=== PATIENT | male | born 1980 | race Caucasian/White ===

== ENCOUNTER 2019-01-13 04:20 | Emergency (ER) | payer SELFPAY ==
[~2019-01-13] VITALS: Ht 180.3 cm; Wt 72.6 kg
[2019-01-13] MEDS ORDERED: NS IV 1000 ML 1,000 ML IV ONE (04:39)
[2019-01-13] MEDS ORDERED: KETOROLAC 30 MG/ML VIAL IVP STA (04:39)
[2019-01-13] MEDS ORDERED: ONDANSETRON 4 MG/2 ML (SDV) Z0FRAN IVP ONE (04:45)
[2019-01-13 04:49] LABS: BASOPHILS % (AUTO) 0 % (0-10); EOSINOPHILS # (AUTO) 0.2 10^3/uL (0.0-0.3); EOSINOPHILS % (AUTO) 3 % (0-10); HEMATOCRIT 42 % (40-54); HEMOGLOBIN 14.6 G/DL (13.3-17.7); LYMPHOCYTES # (AUTO) 2.5 X 10^3 (1.0-4.0); LYMPHOCYTES % (AUTO) 33 % (12-44); MEAN CORPUSCULAR HEMOGLOBIN 31 PG (25-34); MEAN CORPUSCULAR HGB CONC 35 G/DL (32-36); MEAN CORPUSCULAR VOLUME 89 FL (80-99); MEAN PLATELET VOLUME 10.3 FL (7.4-10.4); MONOCYTES # (AUTO) 0.6 X 10^3 (0.0-1.0); MONOCYTES % (AUTO) 8 % (0-12); NEUTROPHILS # (AUTO) 4.4 X 10^3 (1.8-7.8); NEUTROPHILS % (AUTO) 56 % (42-75); PLATELET COUNT 227 10^3/uL (130-400); WHITE BLOOD COUNT 7.7 10^3/uL (4.3-11.0)
--- NOTE | 2019-01-13 04:51 | ED Abdominal Pain ---
General Chief Complaint: Abdominal/GI Problems Stated Complaint: RT SIDE ABD PAIN Source of Information: Patient Exam Limitations: No Limitations (LEVAR GALARZA MEDICAL STUDENT) History of Present Illness Date Seen by Provider: Jan 13, 2019 Time Seen by Provider: 04:29 Initial Comments Pt presents to ED c/o severe RLQ pain x3hrs with associated vomiting and chills. He describes this pain as sharp and rates it as a 10/10. Pt reports that he has had diarrhea and nausea for 4 days. He reports that he walked from [place] to [place] yesterday and was vomiting throughout the walk. He did notice some blood in his vomit, noting that it was due to straining. Pt states his last alcoholic drink was saturday and denies use of illicit drugs. He notes that he can't bear to swallow pills and generally avoids doctors. Denies chest pain or SOB. Timing/Duration: 3-4 Days Severity/Quality: Severe, Sharp Location: RLQ Radiation: No Radiation Activities at Onset: None Modifying Factors: Improves With Other (keeping right hip flexed) Associated Symptoms: Nausea/Vomiting (LEVAR GALARZA MEDICAL STUDENT) Severity/Quality: Moderate Associated Symptoms: No Back Pain, No Chest Pain, No Fever/Chills (MAC ELISE MD) Allergies and Home Medications Allergies Coded Allergies: Penicillins (Verified Allergy, Unknown, 01/13/19) strawberry (Verified Allergy, Unknown, 01/13/19) Patient Home Medication List Home Medication List Reviewed: Yes (LEVAR GALARZA STUDENT) Home Medication List Reviewed: Yes (MAC ELISE MD) Review of Systems Review of Systems Constitutional: chills EENTM: No Symptoms Reported Respiratory: Denies Shortness of Air Cardiovascular: Denies Chest Pain Gastrointestinal: Abdominal Pain; Denies Blood Streaked Stools; Diarrhea, Nausea; Denies Poor Fluid Intake; Vomiting Genitourinary: No Symptoms Reported Musculoskeletal: no symptoms reported Skin: no symptoms reported Psychiatric/Neurological: No Symptoms Reported Endocrine: No Symptoms Reported Hematologic/Lymphatic: No Symptoms Reported (LEVAR GALARZA STUDENT) Constitutional: chills; No fever Respiratory: Denies Cough, Denies Shortness of Air Cardiovascular: Denies Edema Gastrointestinal: Abdominal Pain, Diarrhea, Nausea, Vomiting (MAC ELISE MD) All Other Systems Reviewed Negative Unless Noted: Yes (MAC ELISE MD) Past Nlbjiya-Xbwmdx-Hpbwvv Hx Past Med/Social Hx: Reviewed Nursing Past Med/Soc Hx (MAC ELISE MD) Patient Social History Alcohol Use: Occasionally Uses Recreational Drug Use: No Smoking Status: Current Everyday Smoker (1/2 ppd) Type Used: Cigarettes Recent Foreign Travel: No Contact w/Someone Who Travel: No Recent Hopitalizations: No (LEVAR GALARZA MEDICAL STUDENT) Seasonal Allergies Seasonal Allergies: No (LEVAR GALARZA STUDENT) Past Medical History Surgeries: No Respiratory: No Cardiac: No Neurological: No Genitourinary: No Gastrointestinal: No Musculoskeletal: No Endocrine: Yes (STATES HE WAS TOLD HE HAD LUPUS-NO F/U CARE/MEDICATIONS) Lupus Integumentary: No (LEVAR GALARZA STUDENT) Family Medical History Reviewed Nursing Family Hx (MAC ELISE MD) No Pertinent Family Hx (MAC ELISE MD) Physical Exam Vital Signs Vital Signs - First Documented 01/13/19 04:29 Temp 97.5 Pulse 87 Resp 18 B/P (MAP) 121/81 (94) O2 Delivery Room Air (MAC ELISE MD) Vital Signs Capillary Refill : (LEVAR GALARZA MEDICAL STUDENT) Height/Weight/BMI Height: '" Weight: lbs. oz. kg; BMI Method: General Appearance: moderate distress HEENT: pharynx normal, other (pinpoint pupils bilaterally) Neck: full range of motion, supple Respiratory: chest non-tender, lungs clear Cardiovascular: normal peripheral pulses, regular rate, rhythm, no murmur Peripheral Pulses: 2+ Radial Pulses (R), 2+ Radial Pulses (L) Gastrointestinal: normal bowel sounds, guarding, rebound (Rovsing's sign), tenderness (RLQ), other (+psoas sign) Extremities: non-tender, no pedal edema Back: normal inspection, no vertebral tenderness Skin: normal color, warm/dry (LEVAR GALARZA MEDICAL STUDENT) General Appearance: WD/WN, mild distress HEENT: pharynx normal, other (pinpoint pupils bilaterally) Neck: full range of motion, supple Respiratory: chest non-tender, lungs clear, normal breath sounds Cardiovascular: regular rate, rhythm, no murmur Gastrointestinal: soft, guarding, rebound (Rovsing's sign), tenderness (RLQ), other (+psoas sign) Extremities: normal range of motion, non-tender Back: normal inspection, no CVA tenderness, no vertebral tenderness Neurologic/Psychiatric: alert, oriented x 3 Skin: normal color, warm/dry (MAC ELISE MD) Progress/Results/Core Measures Results/Orders Lab Results Laboratory Tests Test 01/13/19 04:33 01/13/19 05:45 Range/Units White Blood Count 7.7 4.3-11.0 10^3/uL Red Blood Count 4.71 4.35-5.85 10^6/uL Hemoglobin 14.6 13.3-17.7 G/DL Hematocrit 42 40-54 % Mean Corpuscular Volume 89 80-99 FL Mean Corpuscular Hemoglobin 31 25-34 PG Mean Corpuscular Hemoglobin Concent 35 32-36 G/DL Red Cell Distribution Width 14.0 10.0-14.5 % Platelet Count 227 130-400 10^3/uL Mean Platelet Volume 10.3 7.4-10.4 FL Neutrophils (%) (Auto) 56 42-75 % Lymphocytes (%) (Auto) 33 12-44 % Monocytes (%) (Auto) 8 0-12 % Eosinophils (%) (Auto) 3 0-10 % Basophils (%) (Auto) 0 0-10 % Neutrophils # (Auto) 4.4 1.8-7.8 X 10^3 Lymphocytes # (Auto) 2.5 1.0-4.0 X 10^3 Monocytes # (Auto) 0.6 0.0-1.0 X 10^3 Eosinophils # (Auto) 0.2 0.0-0.3 10^3/uL Basophils # (Auto) 0.0 0.0-0.1 10^3/uL Sodium Level 140 135-145 MMOL/L Potassium Level 3.8 3.6-5.0 MMOL/L Chloride Level 105 98-107 MMOL/L Carbon Dioxide Level 23 21-32 MMOL/L Anion Gap 12 5-14 MMOL/L Blood Urea Nitrogen 16 7-18 MG/DL Creatinine 0.99 0.60-1.30 MG/DL Estimat Glomerular Filtration Rate > 60 BUN/Creatinine Ratio 16 Glucose Level 100 70-105 MG/DL Calcium Level 9.0 8.5-10.1 MG/DL Corrected Calcium 8.8 8.5-10.1 MG/DL Total Bilirubin 0.3 0.1-1.0 MG/DL Aspartate Amino Transf (AST/SGOT) 15 5-34 U/L Alanine Aminotransferase (ALT/SGPT) 19 0-55 U/L Alkaline Phosphatase 84 40-136 U/L Total Protein 7.1 6.4-8.2 GM/DL Albumin 4.2 3.2-4.5 GM/DL Urine Color YELLOW Urine Clarity CLEAR Urine pH 6 5-9 Urine Specific [place] 1.020 1.016-1.022 Urine Protein NEGATIVE NEGATIVE Urine Glucose (UA) NEGATIVE NEGATIVE Urine Ketones NEGATIVE NEGATIVE Urine Nitrite NEGATIVE NEGATIVE Urine Bilirubin NEGATIVE NEGATIVE Urine Urobilinogen 4 H NORMAL MG/DL Urine Leukocyte Esterase 1+ H NEGATIVE Urine RBC (Auto) NEGATIVE NEGATIVE Urine RBC NONE /HPF Urine WBC 0-2 /HPF Urine Squamous Epithelial Cells NONE /HPF Urine Crystals NONE /LPF Urine Bacteria TRACE /HPF Urine Casts NONE /LPF Urine Mucus NEGATIVE /LPF Urine Culture Indicated NO Urine Opiates Screen NEGATIVE NEGATIVE Urine Oxycodone Screen NEGATIVE NEGATIVE Urine Methadone Screen NEGATIVE NEGATIVE Urine Propoxyphene Screen NEGATIVE NEGATIVE Urine Barbiturates Screen NEGATIVE NEGATIVE Ur Tricyclic Antidepressants Screen NEGATIVE NEGATIVE Urine Phencyclidine Screen NEGATIVE NEGATIVE Urine Amphetamines Screen NEGATIVE NEGATIVE Urine Methamphetamines Screen NEGATIVE NEGATIVE Urine Benzodiazepines Screen NEGATIVE NEGATIVE Urine Cocaine Screen NEGATIVE NEGATIVE Urine Cannabinoids Screen POSITIVE H NEGATIVE (MAC ELISE MD) My Orders Orders - MAC ELISE MD Cbc With Automated Diff (01/13/19 04:39) Comprehensive Metabolic Panel (01/13/19 04:39) Drug Screen Stat (Urine) (01/13/19 04:39) Ua Culture If Indicated (01/13/19 04:39) Ct Abd/Pelv W (Appendicitis) (01/13/19 04:39) Ed Iv/Invasive Line Start (01/13/19 04:39) Ns Iv 1000 Ml (Sodium Chloride 0.9%) (01/13/19 04:39) Ondansetron Injection (Zofran Injectio (01/13/19 04:45) Ketorolac Injection (Toradol Injection) (01/13/19 04:39) Iohexol Injection (Omnipaque 350 Mg/Ml 1 (01/13/19 05:30) Received Contrast (Hold Metformin- Contr (01/13/19 05:30) Ns (Ivpb) (Sodium Chloride 0.9% Ivpb Bag (01/13/19 05:30) General/Regular (01/13/19 Lunch) (MAC ELISE MD) Medications Given in ED Current Medications Medications Dose Ordered Sig/Jacque Route Start Time Stop Time Status Last Admin Dose Admin Iohexol 100 ml ONCE ONCE IV 01/13/19 05:30 01/13/19 05:31 DC 01/13/19 05:22 100 ML Ondansetron HCl 4 mg ONCE ONCE IVP 01/13/19 04:45 01/13/19 04:46 DC 01/13/19 04:49 4 MG Sodium Chloride 100 ml ONCE ONCE IV 01/13/19 05:30 01/13/19 05:31 DC 01/13/19 05:22 80 ML Sodium Chloride 1,000 ml @ 0 mls/hr Q0M ONCE IV 01/13/19 04:39 01/13/19 04:44 DC 01/13/19 04:49 0 MLS/HR (MAC ELISE MD) Vital Signs/I&O 01/13/19 04:29 Temp 97.5 Pulse 87 Resp 18 B/P (MAP) 121/81 (94) O2 Delivery Room Air (MAC ELISE MD) Progress Progress Note : Progress Note Seen and evaluated the patient and agree with above except as indicated. I have directed the plan of care. Patient is here with right lower quadrant abdominal pain that is worse over the last couple days with associated with diarrhea. He apparently walked 20 miles to get here tonight. States that he's had similar pain previously and was watched in the hospital for a few days and then released. Does not know what the problem was at that time. Evaluation as above. IV, labs, UA, UDS, normal saline 1 L bolus and Toradol 30 mg IV as well as Zofran [address] abdomen pelvis appendicitis protocol ordered. Monitor patient. 0545: CT shows terminal ileitis/enteritis but no obvious appendicitis or other findings to suggest acute appendicitis. Patient is stating that he is hungry and is still in pain. 0620: I reviewed results with the patient. He states that he is really just hungry and would like to eat and she has not had anything to eat since yesterday. He does admit that he's been tolerating fluids well and he appears to be dehydrated based on laboratory studies. He did get a liter of normal saline. We will allow him to eat a light breakfast and then dis charge. Discharged home with return precautions. Patient verbalize understanding instructions and agreement with plan. (MAC ELISE MD) Diagnostic Imaging Diagonstic Imaging: CT Plain Films/CT/US/NM/MRI: abdomen (LEVAR GALARZA MEDICAL STUDENT) Comments [facility] [place], [place] NAME: CAR[facility]G [facility] REC#: [id number] PT STATUS: REG ER : 1980 PHYSICIAN: MAC ELISE MD ADMIT DATE: 01/13/19/ER Draft Date of Exam:01/13/19 CT ABD/PELV W (APPENDICITIS) PROCEDURE: CT abdomen and pelvis with contrast, rule out appendicitis. TECHNIQUE: Multiple contiguous axial images were obtained through the abdomen and pelvis after the administration of intravenous contrast. INDICATION: Abdominal pain x4 days. CORRELATION STUDY: None. FINDINGS: LOWER THORAX: Clear. LIVER: Mildly enlarged. Likely minimal asymmetric fatty infiltration along the falciform ligament. GALLBLADDER: Contracted. Otherwise unremarkable. No ductal dilatation. SPLEEN: Unremarkable. PANCREAS: Unremarkable. ADRENAL GLANDS: Unremarkable. KIDNEYS: Normal configuration. No calcification or obstruction. ABDOMINAL AORTA: Unremarkable, nonaneurysmal. GASTROINTESTINAL TRACT: Stomach mildly distended with retained gastric contents. Gastric wall thickening suggested. Moderate amount of retained stool within the colon. No definitive evidence for obstruction. Normal appendix is present. There is a question of mild wall thickening of distal and terminal ileum with a few loops of mildly prominent fluid distended small bowel. URINARY BLADDER: Unremarkable. REPRODUCTIVE: Prostate gland and seminal vesicles do appear to be very slightly prominent for the patient's age. OSSEOUS STRUCTURES: No acute abnormality. OTHER: None. IMPRESSION: 1. Question of potential enteritis/terminal ileitis. Moderate severity fecal retention. No bowel obstruction. 2. Mild hepatomegaly. A preliminary report was provided by [employer]. Dictated on workstation # [id number] Dict: 01/13/19 0558 Trans: 01/13/19 0604 [id number] Interpreted by: KATHERINE MARRERO DO Electronically signed by: Reviewed: Reviewed [place] Study, Reviewed by Me (MAC ELISE MD) Departure Impression Primary Impression: Right lower quadrant abdominal pain Additional Impression: Enteritis Disposition: HOME, SELF-CARE Condition: Stable Departure-Patient Inst. Decision time for Depature: 06:25 (MAC ELISE MD) Referrals: NO,LOCAL PHYSICIAN (PCP/Family) Primary Care Physician Patient Instructions: Acute Abdomen (Belly Pain), Adult (DC) Add. Discharge Instructions: All discharge instructions reviewed with patient and/or family. Voiced understanding. You may take ibuprofen 800 mg every 8 hours as needed for pain. You may also take Tylenol/acetaminophen 1000 mg every 8 hours as needed for pain. Clear liquid or light diet for the next 24-48 hours and then advance as tolerated. Drink plenty of fluids. Follow-up with your doctor for recheck in a few days as needed. Return for worse pain, swelling, weakness, breathing problems, fever, inability to eat or other concerns as needed. LEVAR GALARZA MEDICAL STUDENT Jan 13, 2019 04:51 MAC ELISE MD Jan 13, 2019 05:56
[2019-01-13 05:03] LABS: ALANINE AMINOTRANSFERASE 19 U/L (0-55); ALBUMIN 4.2 GM/DL (3.2-4.5); ALKALINE PHOSPHATASE 84 U/L (40-136); BILIRUBIN,TOTAL 0.3 MG/DL (0.1-1.0); BUN/CREATININE RATIO 16; CARBON DIOXIDE 23 MMOL/L (21-32); CHLORIDE 105 MMOL/L (98-107); CREATININE SERUM 0.99 MG/DL (0.60-1.30); GFR ESTIMATED > 60; GLUCOSE 100 MG/DL (70-105); POTASSIUM 3.8 MMOL/L (3.6-5.0); SODIUM 140 MMOL/L (135-145); TOTAL PROTEIN 7.1 GM/DL (6.4-8.2)
[2019-01-13] MEDS ORDERED: HOLD METFORMIN - RECEIVED CONTRAST 20 ML VIAL IV SCH (05:30)
[2019-01-13] MEDS ORDERED: NS 100 ML (IVPB) BAG IV ONE (05:30)
[2019-01-13] MEDS ORDERED: IOHEXOL 350 MG/ML 100 ML (OMNIPAQUE 350) VIAL IV ONE (05:30)
[2019-01-13 05:55] LABS: BILIRUBIN,URINE NEGATIVE (NEGATIVE); CLARITY,URINE CLEAR; COLOR,URINE YELLOW; GLUCOSE, URINE (UA) NEGATIVE (NEGATIVE); KETONES,URINE NEGATIVE (NEGATIVE); LEUKOCYTE ESTERASE ,URINE 1+ (NEGATIVE); NITRITE,URINE NEGATIVE (NEGATIVE); PH,URINE 6 (5-9); PROTEIN,URINE NEGATIVE (NEGATIVE); UROBILINOGEN,URINE 4 MG/DL (NORMAL)
--- NOTE | 2019-01-13 06:04 | Diagnostic Imaging Report ---
PROCEDURE: CT abdomen and pelvis with contrast, rule out appendicitis. TECHNIQUE: Multiple contiguous axial images were obtained through the abdomen and pelvis after the administration of intravenous contrast. INDICATION: Abdominal pain x4 days. CORRELATION STUDY: None. FINDINGS: LOWER THORAX: Clear. LIVER: Mildly enlarged. Likely minimal asymmetric fatty infiltration along the falciform ligament. GALLBLADDER: Contracted. Otherwise unremarkable. No ductal dilatation. SPLEEN: Unremarkable. PANCREAS: Unremarkable. ADRENAL GLANDS: Unremarkable. KIDNEYS: Normal configuration. No calcification or obstruction. ABDOMINAL AORTA: Unremarkable, nonaneurysmal. GASTROINTESTINAL TRACT: Stomach mildly distended with retained gastric contents. Gastric wall thickening suggested. Moderate amount of retained stool within the colon. No definitive evidence for obstruction. Normal appendix is present. There is a question of mild wall thickening of distal and terminal ileum with a few loops of mildly prominent fluid distended small bowel. URINARY BLADDER: Unremarkable. REPRODUCTIVE: Prostate gland and seminal vesicles do appear to be very slightly prominent for the patient's age. OSSEOUS STRUCTURES: No acute abnormality. OTHER: None. IMPRESSION: 1. Question of potential enteritis/terminal ileitis. Moderate severity fecal retention. No bowel obstruction. 2. Mild hepatomegaly. A preliminary report was provided by [email or web address]. Dictated by: Dictated on workstation # [id number]
[2019-01-13 06:06] LABS: AMPHETAMINE SCREEN, URINE NEGATIVE (NEGATIVE); BACTERIA,URINE TRACE /HPF; BARBITURATE SCREEN URINE NEGATIVE (NEGATIVE); BENZODIAZEPINES SCREEN URINE NEGATIVE (NEGATIVE); CANNABINOID SCREEN, URINE POSITIVE (NEGATIVE); COCAINE SCREEN URINE NEGATIVE (NEGATIVE); METHADONE STAT NEGATIVE (NEGATIVE); METHAMPHETAMINE SCREEN URINE S NEGATIVE (NEGATIVE); OPIATE SCREEN URINE NEGATIVE (NEGATIVE); OXYCODONE STAT NEGATIVE (NEGATIVE); PROPOXYPHENE STAT NEGATIVE (NEGATIVE); TRICYCLIC ANTIDEPRESSANTS SCRE NEGATIVE (NEGATIVE); WBC,URINE 0-2 /HPF
--- NOTE | 2019-01-13 06:30 | NUR ---
TO D/C AFTER LIGHT BREAKFAST.
[2019-01-13 07:08] VITALS: BP 107/75
== END 2019-01-13 07:08 | disposition home or self-care (01) ==
LOC: ER 04:24
DX: K52.9 Noninfective gastroenteritis and colitis, unspecified (principal); M32.9 Systemic lupus erythematosus, unspecified; F17.210 Nicotine dependence, cigarettes, uncomplicated; Z88.0 Allergy status to penicillin
CPT/HCPCS: 36415; 74177; 80053; 80306; 81000; 85025; 96361; 96374; 96375